=== PATIENT | male | born 1980 | race Caucasian/White ===

== ENCOUNTER 2022-05-10 09:30 | Emergency (ER) | payer MEDICAID ==
[~2022-05-10] VITALS: Ht 185.4 cm; Wt 93.0 kg
--- NOTE | 2022-05-10 11:37 | NUR ---
CD OF IMAGES PROVIDED TO PT.
--- NOTE | 2022-05-10 11:39 | NUR ---
Patient discharged to home in stable condition. Written and verbal after care instructions given. Patient verbalizes understanding of instruction.
[2022-05-10 11:42] VITALS: BP 140/92
== END 2022-05-10 11:42 | disposition home or self-care (01) ==
LOC: ER 09:40
DX: S62.346A Nondisplaced fracture of base of fifth metacarpal bone, right hand, initial encounter for closed fracture (principal); W18.30XA Fall on same level, unspecified, initial encounter; Y93.89 Activity, other specified; Y92.89 Other specified places as the place of occurrence of the external cause; Y99.8 Other external cause status
CPT/HCPCS: 73130-TC